=== PATIENT | female | born 1955 | race Hispanic/Latino ===

== ENCOUNTER 2016-07-10 11:39 | Outpatient (CLI) | payer BC ==
--- NOTE | 2016-07-10 15:39 | XRay Report ---
CHEST 2 VIEWS: FINDINGS: The heart and pulmonary vessels are normal. The lungs are mildly hyperinflated and clear. There is no pleural fluid. There has been no interval change since a study on August 30, 2014. IMPRESSION: No acute cardiopulmonary findings. Mild hyperinflation is present.
== END 2016-07-10 11:40 | disposition home or self-care (01) ==
LOC: XRAY 11:39
PROVIDERS: ATTEND Family Medicine Adult Medicine
DX: J98.11 Atelectasis (principal)
CPT/HCPCS: 71020